=== PATIENT | female | born 1990 | race Caucasian/White ===

== ENCOUNTER 2021-03-29 21:44 | Inpatient (IN) | payer OTHER ==
[2021-03-29 22:58] LABS: BILIRUBIN NEGATIVE (NEGATIVE); BLOOD NEGATIVE Ery/uL (NEGATIVE); CLARITY CLEAR (CLEAR); COLOR YELLOW (YELLOW); GLUCOSE (U) NORMAL (NORMAL); HCT 33.9 % (37.0-47.0); HGB 11.1 g/dl (12.5-16.0); LEUKOCYTES 2+ Leu/uL (NEGATIVE); MCH 29.4 pg (25.0-31.0); MCHC 32.7 g/dL (32.0-36.0); MCV 89.9 fL (78.0-100.0); MPV 10.2 fL (6.0-9.5); NITRITE NEGATIVE (NEGATIVE); PROTEIN NEGATIVE (NEGATIVE); RBC 3.77 M/uL (4.20-5.40); RDW 14.3 % (11.5-14.0); UROBILINOGEN 0.2 mg/dL (0.2-1.0); WBC 10.3 K/uL (4.0-10.5)
[2021-03-29 23:00] LABS: AMPHETAMINES NEGATIVE (NEGATIVE); BARBITURATES NEGATIVE (NEGATIVE); ECSTASY (MDMA) NEGATIVE (NEGATIVE); MARIJUANA (THC) NEGATIVE (NEGATIVE); METHADONE NEGATIVE (NEGATIVE); OPIATES NEGATIVE (NEGATIVE); OXYCODONE NEGATIVE (NEGATIVE)
[2021-03-29 23:05] LABS: AMORPHOUS URATES CRYSTALS TRACE
[2021-03-29 23:06] LABS: BACTERIA 2+; CALCIUM OXALATE CRYSTALS TRACE
[2021-03-31 04:18] LABS: HCT 29.4 % (37.0-47.0); HGB 9.8 g/dl (12.5-16.0); MCHC 33.3 g/dL (32.0-36.0); MCV 89.9 fL (78.0-100.0); RBC 3.27 M/uL (4.20-5.40); RDW 14.3 % (11.5-14.0); WBC 14.1 K/uL (4.0-10.5)
[2021-03-31] MEDS ORDERED: PRENATAL FORMU1 EACH PO (11:32)
[2021-03-31] MEDS ORDERED: IBUPROFEN800 MG PO (11:32)
[2021-03-31] MEDS ORDERED: FOLIC ACID1 MG PO (11:32)
[2021-03-31] MEDS ORDERED: COLACE100 MG PO (11:32)
[2021-03-31] MEDS ORDERED: FEOSOL325 MG PO (11:32)
== END 2021-04-01 14:45 | disposition home or self-care (01) | DRG 807 ==
LOC: FOB 21:44
PROVIDERS: ADMIT Specialist
PROC: 10E0XZZ Delivery of Products of Conception, External Approach (ICD-10-PCS; principal; 2021-03-30)
PROC: 10907ZC Drainage of Amniotic Fluid, Therapeutic from Products of Conception, Via Natural or Artificial Opening (ICD-10-PCS; 2021-03-30)
PROC: 0HQ9XZZ Repair Perineum Skin, External Approach (ICD-10-PCS; 2021-03-30)
PROC: 3E0334Z Introduction of Serum, Toxoid and Vaccine into Peripheral Vein, Percutaneous Approach (ICD-10-PCS; 2021-03-31)
DX: O26.893 Other specified pregnancy related conditions, third trimester (principal); Z37.0 Single live birth; O70.0 First degree perineal laceration during delivery; O90.81 Anemia of the puerperium; Z23 Encounter for immunization; Z20.822 Contact with and (suspected) exposure to COVID-19; Z3A.39 39 weeks gestation of pregnancy; Z67.11 Type A blood, Rh negative
CPT/HCPCS: 36415; 80305; 81001; 85461; 86850; 86900; 86901; 90686; J2405; J2790; J7120; U0002